=== PATIENT | female | born 1950 | race Caucasian/White ===

== ENCOUNTER → 2017-01-14 | Outpatient (CLI) | payer OTHER ==
[~2017-01-14] MED LIST: LORA-741 PO; METO25TA56 PO; MULT-506 PO; RIVA1TAB4 PO; TRAZ50TA35 PO; UMEC1AER INH
== END | disposition home or self-care (01) ==
LOC: C.PAPS 08:20
PROVIDERS: ATTEND Obstetrics & Gynecology
DX: Z12.4 Encounter for screening for malignant neoplasm of cervix (principal)

== ENCOUNTER → 2017-01-30 | Outpatient (CLI) | payer OTHER, MEDICARE ==
--- NOTE | 2017-01-31 07:42 | MAMMOGRAPHY REPORT ---
BILATERAL DIGITAL SCREENING MAMMOGRAM WITH CAD: 01/30/2017 CLINICAL HISTORY: Routine screening. Patient has no complaints. TECHNIQUE: Bilateral CC and MLO views were obtained. Current study was also evaluated with a Compute r Aided Detection (CAD) system. COMPARISON: Comparison is made to exams dated: 04/14/2014 mammogram, 03/18/2013 mammogram, 03/12/2012 m ammogram, 03/07/2011 mammogram, 03/01/2010 mammogram - [facility], and 02/28/2009. BREAST COMPOSITION: The tissue of both breasts is heterogeneously dense, which may obscure small mas ses. FINDINGS: An asymmetry in the superior posterior right breast near the fatglandular interface appear s similar to prior mammograms dating back to at least 02/17/2008, therefore likely benign. There are scattered benign rounded calcifications in the breasts. No obvious new suspicious mass, architectur al distortion or cluster of suspicious microcalcifications is seen. IMPRESSION: ACR BI-RADS CATEGORY 1: NEGATIVE There is no mammographic evidence of malignancy. A 1 year screening mammogram is recommended. The pa tient will receive written notification of the results. Approximately 10% of breast cancers are not detected with mammography. A negative mammographic report should not delay biopsy if a clinically suggestive mass is present. Mary Sumner M.D. ay/:01/30/2017 15:28:15 Touch Up Edger: Mary DALTON(Cordell)(Jatinder), [facility] letter sent: Normal 1/2 BI-RADS Code: ACR BI-RADS Category 1: Negative
== END | disposition home or self-care (01) ==
LOC: C.MAMM 13:38
PROVIDERS: ATTEND Internal Medicine
DX: Z12.31 Encounter for screening mammogram for malignant neoplasm of breast (principal)

== ENCOUNTER → 2017-02-27 | Day surgery (SDC) | payer OTHER, MEDICARE ==
[2017-02-21 10:37] VITALS: Ht 157.5 cm; Wt 59.1 kg
[~2017-02-27] VITALS: Ht 157.5 cm; Wt 59.1 kg
[~2017-02-27] MED LIST changes: +500ML BSS 0.3ML EPI 1:1000PF IRRIG ONE; +ACETAMINOPHEN 325 MG TAB PO PRN; +AMVISC PLUS 0.8ML SYRINGE INT OCU ONE; +ATROPINE SULFATE 0.1 MG/ML 5ML SYR IV PRN; +BRIMONIDINE TART 0.2% OP SOLN PER DROP CHARGE ONE; +BSS FLUSH ONE; +ENDOCOAT 0.85ML SYRINGE INT OCU ONE; +EpHEDrine SULFATE INJ 50 MG/ML AMP IV PRN; +EpINEphrine INJ 1MG/ML AMP 1 MG/ML AMP ONE; +FENTANYL CITRATE INJ 50 MCG/1 ML 2 ML VIAL ONE; +LACTATED RINGER'S 1000ML 500 ML IV SCH; +LIDOCAINE 4% OP SOLN DROP CHARGE OPR SCH; +LIDOCAINE HCL 1% MPF 2 ML VIAL ONE; +MIDAZOLAM HCL 1 MG/ML 2ML VIAL ONE; +MIX: 4ML BSS 1ML EPI 1:1000 PF INSTIL ONE; +MOXIFLOXACIN OPH SOLN PER DROP CHARGE ONE; +OCUCOAT 1 ML SOLN IO ONE; +POVIDONE-IODINE OP SOLN 30 ML BTL ONE; +PROPARACAINE 0.5% OP SOLN PER DROP CHARGE OPR SCH; +TOBRAMYCIN/DEXAMETHASONE OPH OINT PER APPLN CHARGE ONE
--- NOTE | 2017-02-27 06:52 | History & Physical Bridge - SC ---
H&P Re-Evaluation Bridge Note: I have examined the patient, reviewed the History & Physical and in the interval since the performance of the History & Physical I have noted the following changes of clinical significance: No changes noted
[2017-02-27] MEDS: PHENYLEPHRINE HCL 2.5% OP SOLN PER DROP CHARGE OPR SCH ×2 (07:12→07:17)
[2017-02-27] MEDS: TROPICAMIDE 1% OP SOLN PER DROP CHARGE OPR SCH ×2 (07:13→07:18)
[2017-02-27] MEDS: CYCLOPENTOLATE HCL 1% OP SOLN PER DROP CHARGE OPR SCH ×2 (07:14→07:19)
[2017-02-27] MEDS: MOXIFLOXACIN OPH SOLN PER DROP CHARGE OPR SCH ×2 (07:15→07:26)
[2017-02-27] MEDS: LIDOCAINE 4% OP SOLN DROP CHARGE ONE ×2 (07:27→08:09)
--- NOTE | 2017-02-27 08:13 | Discharge Instructions-SurgCtr ---
Discharge Instructions Date of Service Feb 27, 2017. Visit Reason for Visit: Cataract Right Discharge Discharge Diagnosis / Problem: Lens Implant Right Eye Discharge Goals Goal(s): Improve function Activity Recommendations Activity Limitations: resume your previous activity Lifting Limitations: no more than 10 pounds Exercise/Sports Limitations: gradually increase as tolerated May Resume Sexual Activity: when tolerated Shower/Bathe: tomorrow Driving or Machine Use: resume 1 day after discharge Anesthesia . Post Anesthesia Instructions: If you have had General Anesthesia or IV Sedation: * Do not drive today. * Resume driving when surgeon permits. * Do not make important decisions or sign legal documents today. * Call surgeon for: 1. Temperature elevations greater than 101 degrees F. 2. Uncontrollable pain. 3. Excessive bleeding. 4. Persistent nausea and vomiting. 5. Medication intolerance (nausea, vomiting or rash). * For nausea and vomiting use only clear liquids such as: tea, soda, bouillon until nausea subsides, then gradually increase diet as tolerated. * If you have any concerns or questions, call your surgeon's office. If physician is unavailable and it is an emergency, call 911 or go to the nearest emergency room. . Instructions / Follow-Up Instructions / Follow-Up ACTIVITY RECOMMENDATIONS: * Light activities. * Mild irritation and blurred vision are common for the first few days. * You may walk outside, read, watch television. * Redness around the white part of the eye is common. MEDICATIONS: Resume previous medications unless instructed otherwise by your surgeon. Start all eye drops at 1 pm today: * Eye drops (today and tomorrow): Prednisone - one drop in operative eye every 3 hours while awake Ofloxacin - one drop in operative eye every 3 hours while awake SPECIAL CARE INSTRUCTIONS: * Tape plastic shield over eye to sleep at night. Call your doctor at with any concerns or problems. FOLLOW UP VISIT: Follow-up with Dr Obando at [facility] as scheduled. Diet Recommendations Home Diet: no limitations Procedures Procedures Performed: Cataract Extraction with Lens Implant Pending Studies Studies pending at discharge: no Medical Emergencies . Who to Call and When: Medical Emergencies: If at any time you feel your situation is an emergency, please call 911 immediately. . Non-Emergent Contact Non-Emergency issues call your: Pharmacy Technician Infusion Call Non-Emergent contact if: your pain is not controlled [phone] . . "Provider Documentation" section prepared by Andrea Obando. .
--- NOTE | 2017-02-27 08:15 | [facility] Operative Report ---
Operative Report Date of Service Feb 27, 2017. Operative Report 1. PREOPERATIVE DIAGNOSIS: Senile nuclear cataract, right eye. 2. POSTOPERATIVE DIAGNOSIS: Senile nuclear cataract, right eye. 3. PROCEDURE: Phacoemulsification of right cataract with posterior chamber lens implant, type [employer], model MI60L, power +10.0 diopters. ANESTHESIA: Local standby. SURGEON: Dr. Obando. COMPLICATIONS: None. OPERATING TIME: 10 minutes. 4. OPERATION AND FINDINGS: DESCRIPTION OF PROCEDURE: The right pupil was dilated. The anesthetic was administered using a topical technique. The right eye was prepped and draped. A speculum was placed. A clear corneal incision was formed. The chamber was filled with Amvisc Plus and Endocoat. Epinephrine solution was used. A paracentesis was placed. A capsulorrhexis was performed. The nucleus was hydrodissected. The lens was removed with phacoemulsification. Time was 2.55 seconds. The aspiration unit was used to remove the cortex. The capsule was filled with Amvisc Plus. The lens implant was folded and placed into the capsule. The incision was hydrated. The Amvisc was aspirated. The wound was secure. The chamber was deep. The pupil was round. Brimonidine, TobraDex ointment and Vigamox solution were placed. The speculum was removed. The patient was returned to the Recovery Room in stable condition. I attest to the content of the Intraoperative Record and any orders documented therein. Any exceptions are noted below. The scribe's documentation has been prepared in my presence, under my direction and personally reviewed by me in its entirety. I confirm that the note above accurately reflects all work, treatment, procedures, and medical decision making performed by me. I personally scribed for Andrea Obando M.D. (ALEXIS) on 02/27/17 at 08:15. Electronically submitted by Carla Cabrera ([place]).
[2017-02-27 08:16] VITALS: TEMP 36.6
[2017-02-27 08:41] VITALS: BP 133/77; PULSE 62; O2SAT 94
--- NOTE | 2017-02-27 08:47 | Anesthesia Progress Nt - [facility] ---
Anesthesia Post Op Note Date & Time Feb 27, 2017 at 08:47 Vital Signs Pain Intensity: 0 Vital Signs Past 12 Hours Date Time Temp Pulse Resp B/P (MAP) Pulse Ox O2 Delivery O2 Flow Rate FiO2 02/27/17 08:41 62 20 133/77 (95) 94 02/27/17 08:16 36.6 58 20 113/67 (82) 96 Room Air 02/27/17 07:05 36.6 69 16 130/75 (93) 96 Room Air Notes Mental Status: alert / awake / arousable, participated in evaluation Pt Amnestic to Procedure: Yes Nausea / Vomiting: adequately controlled Pain: adequately controlled Airway Patency, RR, SpO2: stable & adequate BP & HR: stable & adequate Hydration State: stable & adequate Anesthetic Complications: no major complications apparent
== END | disposition home or self-care (01) ==
LOC: X.SURG 06:50
PROVIDERS: ATTEND Specialist
DX: H25.11 Age-related nuclear cataract, right eye (principal); J44.9 Chronic obstructive pulmonary disease, unspecified; Z91.040 Latex allergy status; Z88.2 Allergy status to sulfonamides; Z85.118 Personal history of other malignant neoplasm of bronchus and lung; Z86.718 Personal history of other venous thrombosis and embolism; Z68.23 Body mass index [BMI] 23.0-23.9, adult; Z98.42 Cataract extraction status, left eye; Z98.890 Other specified postprocedural states

== ENCOUNTER → 2017-04-02 | Outpatient (CLI) | payer OTHER, MEDICARE ==
[~2017-04-02] MED LIST changes: -500ML BSS 0.3ML EPI 1:1000PF IRRIG ONE; -ACETAMINOPHEN 325 MG TAB PO PRN; -AMVISC PLUS 0.8ML SYRINGE INT OCU ONE; -ATROPINE SULFATE 0.1 MG/ML 5ML SYR IV PRN; -BRIMONIDINE TART 0.2% OP SOLN PER DROP CHARGE ONE; -BSS FLUSH ONE; -ENDOCOAT 0.85ML SYRINGE INT OCU ONE; -EpHEDrine SULFATE INJ 50 MG/ML AMP IV PRN; -EpINEphrine INJ 1MG/ML AMP 1 MG/ML AMP ONE; -FENTANYL CITRATE INJ 50 MCG/1 ML 2 ML VIAL ONE; -LACTATED RINGER'S 1000ML 500 ML IV SCH; -LIDOCAINE 4% OP SOLN DROP CHARGE OPR SCH; -LIDOCAINE HCL 1% MPF 2 ML VIAL ONE; -MIDAZOLAM HCL 1 MG/ML 2ML VIAL ONE; -MIX: 4ML BSS 1ML EPI 1:1000 PF INSTIL ONE; -MOXIFLOXACIN OPH SOLN PER DROP CHARGE ONE; -OCUCOAT 1 ML SOLN IO ONE; -POVIDONE-IODINE OP SOLN 30 ML BTL ONE; -PROPARACAINE 0.5% OP SOLN PER DROP CHARGE OPR SCH; -TOBRAMYCIN/DEXAMETHASONE OPH OINT PER APPLN CHARGE ONE
--- NOTE | 2017-04-03 07:45 | MAMMOGRAPHY REPORT ---
UNILATERAL RIGHT DIGITAL DIAGNOSTIC MAMMOGRAM TOMOSYNTHESIS WITH CAD AND TARGETED RIGHT ULTRASOUND: CLINICAL HISTORY: 66-year-old woman presents for diagnostic evaluation. A prior chest CT performed i June 2016 described a 9 mm enhancing nodule in the 9:00 posterior right breast. Upon further q uestioning, the patient has a remote history of previous biopsy in the 10:00 right breast, performed in 1996, which yielded a fibroadenoma. Images from that biopsy are not available. TECHNIQUE: Right XCCL and MLO 2-D and tomosynthesis images were obtained. Current study was also ev aluated with a Computer Aided Detection (CAD) system. COMPARISON: Comparison is made to exams dated: 01/30/2017 mammogram, 04/14/2014 mammogram, 03/18/2013 ma mmogram, 03/12/2012 mammogram, 03/07/2011 mammogram, and 03/01/2010 mammogram - [facility]. BREAST COMPOSITION: The tissue of the right breast is heterogeneously dense, which may obscure small masses. FINDINGS: The parenchymal pattern of the right breast is similar to prior exams. There are scattere d benign coarse and round microcalcifications throughout the right breast. On the exaggerated latera l CC view and corresponding tomosynthesis images, there is a partially circumscribed 9.5 mm round mas s in the lateral posterior breast. When comparing to all available prior mammograms, this in retrosp ect has been present dating back to 02/17/2008 and does not appear significantly changed in size, giv en slight differences in technique. Nevertheless, further evaluation with ultrasound was performed. No other definite mass, focal area of architectural distortion or new suspicious calcifications are seen in the right breast. Targeted ultrasound was performed in the lateral right breast approximate 9:00 and 10:00 axes. In th e 10:00 breast, 4 cm from the nipple, there is an oval parallel circumscribed solid mass measuring ap proximately 9.2 x 11.1 x 4.7 mm. 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 The above mammograms and ultrasound and findings were discussed with the patient and her at t he time of the exam. Options of follow-up to ensure stability of this benign-appearing solid mass ve rsus tissue sampling were provided and the with like to biopsy the solid mass at this time. As the p atient with scheduling the appointment, I was able to find a previous pathology report from 1996 whic h reported the biopsied mass to be in the 10:00 axis, measuring 15 mm. Although this suggests this m ass has been previously biopsied, a biopsy marker clip is not present within and given that no prior imaging is present it remains indeterminate; ultrasound guided core biopsy is recommended. IMPRESSION: ACR BI-RADS CATEGORY 4: SUSPICIOUS, TARGETED ULTRASOUND ACR BI-RADS CATEGORY 4: SUSPICIO US 1. The 9 mm nodule seen in the 9:00 posterior right breast described on a prior chest CT corresponds to an indeterminate solid mass in the 10:00 right breast seen on ultrasound. Although mammographica lly this mass may have been present dating back to 2007, and was possibly previously biopsied, no bio psy marker clip is present within for definitive confirmation, and no prior imaging including biopsy imaging is available at this time given the biopsy occurred 20 years ago. Therefore, ultrasound guid ed core needle biopsy is recommended. These results and recommendations were discussed with the patient and her at the time of the exam. Approximately 10% of breast cancers are not detected with mammography. A negative mammographic report should not delay biopsy if a clinically suggestive mass is present. Mary Sumner M.D. ay/:04/02/2017 14:18:02 Water And Gas Helper: Evens DALTON(Cordell)(Jatinder), [facility] letter sent: Abnormal 4/5 BI-RADS Code: ACR BI-RADS Category 4: Suspicious Ultrasound BI-RADS: ACR BI-RADS Category 4: Suspici ous
== END | disposition home or self-care (01) ==
LOC: C.MAMM 09:34
PROVIDERS: ATTEND Internal Medicine
DX: N63 Unspecified lump in breast (principal)

== ENCOUNTER → 2017-04-10 | Outpatient (CLI) | payer OTHER, MEDICARE ==
--- NOTE | 2017-04-10 13:37 | Discharge Instructions ---
Discharge Instructions Procedure Procedure Date: Apr 10, 2017. Reason for visit: Right Mass. Discharge Discharge Date: Apr 10, 2017. Discharge Diagnosis: status post breast biopsy Instructions Activity Recommendations: Additional Limitations (see below) Return to School/Work: no limitations Recommended Home Diet: No Limitations Provider Instructions: ACTIVITY RECOMMENDATIONS: * No lifting, pushing, pulling or exercising the affected side for three days. RETURN TO SCHOOL/WORK: * You may return to work/school after the procedure, but do not perform any strenuous activities for 24 to 48 hours. MEDICATIONS: * Tylenol (two 325 mg) every four to six hours if needed for mild pain (if not allergic to Tylenol). DIET: * Resume previous diet. SPECIAL CARE INSTRUCTIONS: * Keep biopsy site dry for 24 hours. May shower after 24 hours, but do not soak (bathe) incision. * May remove Tegaderm (plastic patch) tomorrow AFTER showering. * Leave the steri-strips on for one week. Allow the steri-strips to fall off by themselves. If not off after one week, you may remove them. You may place a Bandaid crosswise over the strips, if desired. * Apply ice 10 minutes on and 10 minutes off as needed. * Wear a bra at bedtime to sleep more comfortably for 2-3 days. * Your referring physician should have the results after approximately 5 to 7 business days. * Call for unusual bleeding, fever, drainage, etc or if you have any questions call during normal business hours or after hours call Dr Rowe, . FOLLOW UP VISIT: Follow-up with Referring Physician as scheduled. Allergies Coded Allergies: Latex (Verified Allergy, Intermediate, hives, itching,, 02/27/17) Sulfa Antibiotics (Verified Allergy, Intermediate, HIVES, 02/27/17) Sanchez Mclean Recommendations: Call your doctor if: * Temperature above 101 degrees * Pain not relieved by pain medicine ordered * There is increased drainage or redness from any incision * You have any unanswered questions or concerns. Your Doctors Instructions noted above were prepared by provider Radha oRwe. Patient Signature Section: Patient Instructions Signature Page Edwinabuddy Zamarripa Patient (or Guardian) Signature/Date: I have read and understand the instructions given to me by my caregivers. Caregiver/RN/Doctor Signature/Date: The above-named patient and/or guardian has received patient instructions on this date. + Original Patient Signature Page (only) stays with chart. Please make copy for patient.
--- NOTE | 2017-04-10 15:18 | MAMMOGRAPHY REPORT ---
ULTRASOUND GUIDED BIOPSY RIGHT BREAST: 04/10/2017 CLINICAL HISTORY: Right 10:00 breast mass. PATIENT CONSENT: The procedure, risks and benefits were discussed with the patient and informed writt en consent was obtained. A timeout was performed immediately prior to the procedure. PROCEDURE DESCRIPTION: With ultrasound guidance, aseptic technique, and lidocaine as the local anesth etic (1% lidocaine to anesthetize the skin and 1% lidocaine with epinephrine to anesthetize the deepe r tissues), the mass of concern in the right 10:00 breast was sampled multiple times with a 14-gauge Achieve biopsy needle and 18-gauge Quick-Core biopsy needle. The mass was very far posterior so an o pen bevel technique was used, however, the larger biopsy needle would not easily travserse the mass t herefore the smaller Quick-Core needle was used. Immediately thereafter, a metallic localizer clip w as placed centrally in the mass. Direct pressure was applied to the site immediately post procedure and hemostasis was achieved. Postprocedure unilateral mammograms were performed to confirm placement of the clip in the expected location of the breast mass. The patient tolerated the procedure withou t complication. She was given wound care instructions. The specimens were sent to pathology for anal ysis. COMPARISON: Comparison is made to exams dated: 04/02/2017 mammogram, 04/02/2017 ultrasound, 04/14/2014 ma mmogram, 01/30/2017 mammogram, 03/18/2013 mammogram - [facility], and 02/28/2009. IMPRESSION: ULTRASOUND GUIDED BIOPSY Ultrasound-guided core needle biopsy of the right 10:00 breast mass, with clip placement. The patien t will receive pathology results from her referring provider. Radha Rowe M.D. ah/:04/10/2017 14:32:37 Office Automation Technician: Autumn DALTON(R)(M), [facility]
--- NOTE | 2017-04-10 15:20 | MAMMOGRAPHY REPORT ---
UNILATERAL RIGHT DIGITAL DIAGNOSTIC MAMMOGRAM TOMOSYNTHESIS: 04/10/2017 CLINICAL HISTORY: Status post right breast biopsy. A stressing. TECHNIQUE: Breast tomosynthesis in addition to standard 2D mammography was performed. Postprocedura l right CC and ML tomosynthesis images including C views were obtained. COMPARISON: Comparison is made to exams dated: 04/02/2017 ultrasound, 04/02/2017 mammogram, 01/30/2017 clarence mogram, 04/14/2014 mammogram, 03/18/2013 mammogram, and 03/12/2012 mammogram - [facility]. BREAST COMPOSITION: The tissue of the right breast is heterogeneously dense, which may obscure small masses. FINDINGS: A new biopsy marker clip is seen in the right upper outer quadrant at the site of the biop sied right 10:00 breast mass. This is located at the site of the mammographic mass which has been st able mammographically dating back to at least the 2007 and 2008 exam, suggesting benignity. No signi ficant postbiopsy hematoma is seen. IMPRESSION: POST PROCEDURE IMAGING FOR MARKER PLACEMENT New biopsy marker clip status post right breast biopsy. Pathology results are pending. Approximately 10% of breast cancers are not detected with mammography. A negative mammographic report should not delay biopsy if a clinically suggestive mass is present. Radha Rowe M.D. /:04/10/2017 14:34:59 Typist: Autumn DOMÍNGUEZ)(Jatinder), [facility] BI-RADS Code: Post Procedure Imaging For Marker Placement
== END | disposition home or self-care (01) ==
LOC: C.MAMM 12:48
PROVIDERS: ATTEND Internal Medicine
DX: R92.8 Other abnormal and inconclusive findings on diagnostic imaging of breast (principal); N63 Unspecified lump in breast

== ENCOUNTER → 2017-07-24 | Day surgery (SDC) | payer OTHER, MEDICARE ==
[2017-07-16 09:00] VITALS: Ht 157.5 cm; Wt 63.6 kg
[~2017-07-24] VITALS: Ht 157.5 cm; Wt 63.6 kg
[~2017-07-24] MED LIST changes: +LIDOCAINE HCL 2% 2 ML VIAL (20MG/ML) ONE; +PROPOFOL IV EMULSION 10 MG/ML 20 ML VIAL IV ONE
--- NOTE | 2017-07-24 09:32 | Endo History and Physical ---
History & Physical Date of Service: Jul 24, 2017. Chief Complaint: screening CRC Referring Physician: Dr Osborne History of Present Illness CRC screening Past Surgical History Hx Cardiac Surgery: No Hx Internal Defibrillator: No Hx Pacemaker: No Hx Abdominal Surgery: No Hx of Implantable Prosthesis: No Hx Post-Op Nausea and Vomiting: Yes Hx Cancer Surgery: No Hx Thoracic Surgery: Yes (BRONCHOSCOPY WITH BIOPSY) Hx Orthopedic: No Hx Urinary Tract Surgery: No Family History None Social History Smoking Status: Former Smoker Hx Substance Use: No Hx Alcohol Use: No Allergies Coded Allergies: Latex (Verified Allergy, Intermediate, HIVES, ITCHING, 07/16/17) Sulfa Antibiotics (Verified Allergy, Intermediate, HIVES, 07/16/17) Current Medications Reported Home Medications Medications Dose Route/Sig Max Daily Dose Days Date Category Anoro Ellipta 62.5-25 Mcg/INH (Umeclidinium-Vilanterol) 1 Aer Aer 1 Puff INH QAM 02/21/17 Reported Multivitamin (Multivitamins) Tab 1 Tab PO DAILY 02/21/17 Reported Ativan (Lorazepam) 0.5 Mg Tab 0.5 Mg PO HS PRN 02/21/17 Reported Trazodone (Trazodone HCl) 50 Mg Tab 50 Mg PO HS 02/21/17 Reported Xarelto (Rivaroxaban) 20 Mg Tab 20 Mg PO QAM 02/21/17 Reported Lopressor (Metoprolol Tartrate) 25 Mg Tab 25 Mg PO BID 02/21/17 Reported Vital Signs Weight (Kilograms): 63.64 Height (Feet): 5 Height (Inches): 2 Date Time Temp Pulse Resp B/P (MAP) Pulse Ox O2 Delivery O2 Flow Rate FiO2 07/24/17 08:47 36.6 68 22 122/66 (84) 98 Room Air Physical Exam General Appearance: no apparent distress Respiratory/Chest: Auscultation: breath sounds normal Cardiovascular: Heart Auscultation: RRR Abdomen: Inspection & Palpation: soft Assessment and Plan CRC screening
--- NOTE | 2017-07-24 10:11 | GI REPORT ---
Procedure Date: 07/24/2017 9:42 AM Procedure: Colonoscopy Indications: Screening for colorectal malignant neoplasm Medicines: See the Anesthesia note for documentation of the administered medications Complications: No immediate complications. Estimated Blood Loss: Estimated blood loss: none. Procedure: Pre-Anesthesia Assessment: - ASA Grade Assessment: II - A patient with mild systemic disease. After I obtained informed consent, the scope was passed under direct vision. Throughout the procedure, the patient's blood pressure, pulse, and oxygen saturations were monitored continuously. The scope was introduced through the anus and advanced to the terminal ileum. The colonoscopy was performed without difficulty. The patient tolerated the procedure well. The quality of the bowel preparation was good. Findings: The perianal and digital rectal examinations were normal. Multiple small and large-mouthed diverticula were found in the sigmoid colon. Multiple AVM's in ascending colon. Otherwise normal exam. Impression: - Diverticulosis in the sigmoid colon. - AVM's in ascending colon. Recommendation: - Discharge patient to home. Repeat exam in 10 years. Kaz Jacobo M.D. Kaz Jacobo MD 07/24/2017 10:11:02 AM This report has been signed electronically. Note Initiated On: 07/24/2017 9:42 AM I attest to the content of the Intraoperative Record and orders documented therein, exceptions below
--- NOTE | 2017-07-24 10:12 | Discharge Instructions ---
Endoscopy Patient Instructions Date / Procedure(s) Performed Jul 24, 2017. Colonoscopy Allergy Information Coded Allergies: Latex (Verified Allergy, Intermediate, HIVES, ITCHING, 07/16/17) Sulfa Antibiotics (Verified Allergy, Intermediate, HIVES, 07/16/17) Discharge Date / Findings Jul 24, 2017. Diverticulosis, AVM's. Medication Instructions Stopped Medication(s): Xarelto Provider Instructions Activity Restrictions - No exercising or heavy lifting for 24 hours. - Do not drink alcohol the day of the procedure. - Do not drive a car or operate machinery until the day after the procedure. - Do not make any important decisions or sign important papers in 24 hours after the procedure. Following Day: - Return to full activity which may include returning to work/school. Diet Start your diet with liquids and light foods (jello, soup, juice, toast). Then eat your usual diet if not nauseated. Treatment For Common After Affects For mild abdominal pain, bloating, or excessive gas: - Rest - Eat lightly - Lie on right side Follow-Up Information Follow-up with Dr Osborne as scheduled Anesthesia Information What You Should Know You have had a procedure that required some medicine to reduce anxiety and discomfort. This treatment is called moderate sedation. After receiving the treatment, you may be sleepy, but you will be able to breathe on your own. The effects of the treatment may last for several hours. Follow these instructions along with Activity/Diet recommendations noted above: * Do NOT do anything where dizziness or clumsiness would be dangerous. * Rest quietly at home today, then you can be up and about tomorrow. * Have a responsible person stay with you the rest of today. * You may have had an I.V. today. If so, you may take the dressing off later today. Recommendations Call your doctor if: * Trouble breathing * Continuous vomiting for more than 24 hours * Temperature above 101 degrees * Severe abdominal pain or bloating * Pain not relieved by pain medicine ordered * There is increased drainage or redness from any incision * A large amount of rectal bleeding greater than 2-3 tablespoons. (If you had a polyp/s removed or have hemorrhoids, a small amount of blood - from the rectum is to be expected.) * You have any unanswered questions or concerns. IN THE EVENT OF A SERIOUS EMERGENCY, GO TO THE NEAREST EMERGENCY ROOM Your discharge instructions were prepared by provider Kaz Russell. Patient Instructions Signature Page Edwina Zamarripa Patient (or Guardian) Signature/Date: I have read and understand the instructions given to me by my caregivers. Caregiver/RN/Doctor Signature/Date: The above-named patient and/or guardian has received patient instructions on this date. + Original Patient Signature Page (only) stays with chart. Please make copy for patient.
[2017-07-24 10:40] VITALS: BP 107/58; PULSE 67; O2SAT 97
--- NOTE | 2017-07-24 10:48 | Anesthesiology Progress Note ---
Anesthesia Post Op Note Date & Time Jul 24, 2017 at 10:47 Vital Signs Pain Intensity: 0 Vital Signs Past 12 Hours Date Time Temp Pulse Resp B/P (MAP) Pulse Ox O2 Delivery O2 Flow Rate FiO2 07/24/17 10:40 67 20 107/58 (74) 97 Room Air 07/24/17 10:25 71 20 95/55 (68) 98 Room Air 07/24/17 10:10 64 20 128/57 (80) 98 Room Air 07/24/17 08:47 36.6 68 22 122/66 (84) 98 Room Air Notes Mental Status: alert / awake / arousable, participated in evaluation Pt Amnestic to Procedure: Yes Nausea / Vomiting: adequately controlled Pain: adequately controlled Airway Patency, RR, SpO2: stable & adequate BP & HR: stable & adequate Hydration State: stable & adequate Anesthetic Complications: no major complications apparent
== END | disposition home or self-care (01) ==
LOC: C.GI 08:23
PROVIDERS: ATTEND Internal Medicine Gastroenterology
DX: Z12.11 Encounter for screening for malignant neoplasm of colon (principal); K57.30 Diverticulosis of large intestine without perforation or abscess without bleeding; K55.20 Angiodysplasia of colon without hemorrhage; Z85.118 Personal history of other malignant neoplasm of bronchus and lung; Z86.718 Personal history of other venous thrombosis and embolism; J44.9 Chronic obstructive pulmonary disease, unspecified; Z91.040 Latex allergy status; Z88.2 Allergy status to sulfonamides; Z79.899 Other long term (current) drug therapy; Z98.41 Cataract extraction status, right eye; Z98.42 Cataract extraction status, left eye; Z98.890 Other specified postprocedural states

== ENCOUNTER → 2017-08-09 | Outpatient (CLI) | payer OTHER, MEDICARE ==
[~2017-08-09] MED LIST changes: -LIDOCAINE HCL 2% 2 ML VIAL (20MG/ML) ONE; -PROPOFOL IV EMULSION 10 MG/ML 20 ML VIAL IV ONE
--- NOTE | 2017-08-09 12:17 | DIAGNOSTIC IMAGING REPORT ---
LUNG QUANTITATIVE CLINICAL HISTORY: R91.8 Pulmonary massC34.90 Bronchogenic xwhmpzE57.02 Shortness o TECHNIQUE: Quantitative lung scan following administration of 5.5 mCi technetium 99m MAA. COMPARISON STUDY: 07/09/2017 FINDINGS: Considerable differential of perfusion is noted in the right compared to left lung. Left lung is diminished in terms of volume of the right somewhat hyperexpanded. Overall, left contributes 24% of total perfusion with the right lung contributing 76%. IMPRESSION: 1. Considerable asymmetry of pulmonary perfusion 2. Right lung contributes 76% total perfusion. 3. Left contributes 24% of total perfusion. The above report was generated using voice recognition software. It may contain grammatical, syntax or spelling errors. Electronically signed by: Jacinto Hernandez M.D. 08/09/2017 12:16 PM Dictated Date/Time: 08/09/2017 12:11 PM
== END | disposition home or self-care (01) ==
LOC: C.NUCL 10:49
PROVIDERS: ATTEND Internal Medicine Pulmonary Disease
DX: R06.02 Shortness of breath (principal); R91.8 Other nonspecific abnormal finding of lung field; C34.90 Malignant neoplasm of unspecified part of unspecified bronchus or lung

== ENCOUNTER → 2017-08-12 | Outpatient (CLI) | payer OTHER, MEDICARE ==
[~2017-08-12] MED LIST changes: +BACL10TA PO; +CALC600T9 PO; +PRED20TA2 PO
[2017-08-15 11:11] VITALS: PULSE 80; O2SAT 92
--- NOTE | 2017-08-29 12:57 | CODING QUERY MEDICAL NECESSITY ---
SUPPORTING DIAGNOSIS NEEDED A supporting diagnosis is required for the test/procedure performed on this patient in order for us to be reimbursed by the patient's insurance. Please provide a supporting diagnosis for the following test/procedure listed below next to the test name along with your signature. *If there is no additional diagnosis for this patient that would support the following test/procedure please document that below next to the test/procedure. Test(s)/Procedure(s) that require a supporting diagnosis: * PULSE OX OVERNIGHT STUDY DIAGNOSIS: Provider Signature: Date: Thank you Khushbu Levine [employer] Once completed, please kindly fax back to [phone] For questions please call [phone]
== END | disposition home or self-care (01) ==
LOC: C.RC 16:43
PROVIDERS: ATTEND Internal Medicine Pulmonary Disease
DX: R06.02 Shortness of breath (principal); R91.8 Other nonspecific abnormal finding of lung field

== ENCOUNTER → 2017-08-13 | Outpatient (CLI) | payer OTHER, MEDICARE ==
[~2017-08-13] MED LIST changes: -BACL10TA PO; -CALC600T9 PO; +GADAVIST IV PRN; -PRED20TA2 PO
--- NOTE | 2017-08-13 22:31 | DIAGNOSTIC IMAGING REPORT ---
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 The midline structures including the corpus callosum, brainstem, optic chiasm, pituitary gland and infundibulum, pineal gland and cerebellar tonsils are unremarkable in the sagittal T1 series. Mild degenerative changes of the imaged cervical spine. Coronal T2 FLAIR images are at severely motion degraded. Mild scattered foci of increased T2/FLAIR signal redemonstrated within the subcortical and periventricular white matter suggesting chronic microvascular ischemic changes. No acute intracranial hemorrhage, midline shift or abnormal extra-axial collections. There is no abnormal intra-axial or extra-axial enhancement identified to suggest metastasis. The major flow voids at the level of the skull base appear patent. Thinning of the bilateral lenses suggest prior cataract repair. The scalp, calvarium and soft tissues are unremarkable. Mild ethmoid sinus disease. Mastoid air cells are clear. Probable slow flow within the left sigmoid sinus. IMPRESSION: 1. No acute intracranial abnormality. No abnormal enhancement or acute infarction. 2. Mild chronic microvascular ischemic changes. The above report was generated using voice recognition software. It may contain grammatical, syntax or spelling errors. Electronically signed by: Shin Mcdermott M.D. 08/13/2017 10:29 PM Dictated Date/Time: 08/13/2017 10:19 PM
== END | disposition home or self-care (01) ==
LOC: C.MRI 20:20
PROVIDERS: ATTEND Internal Medicine Pulmonary Disease
DX: C34.90 Malignant neoplasm of unspecified part of unspecified bronchus or lung (principal); R51 Headache

== ENCOUNTER → 2017-09-02 | Outpatient (CLI) | payer OTHER, MEDICARE ==
--- NOTE | 2017-09-02 09:45 | DIAGNOSTIC IMAGING REPORT ---
MRA CHEST SUBCLAVIAN ANGIO COMBO CLINICAL HISTORY: AORTIC ARCH SYNDROME, giant cell arteritis COMPARISON STUDY: No previous studies for comparison. FINDINGS: Noncontrast images were supplemented with angiographic sequence in which the patient received 6.5 mL of intravenous Gadavist Steam Hand images reveal multilevel degenerative changes in the cervical spine with suspected mild multilevel spinal stenosis Post gadolinium sagittal images reveal a 4.4 cm left apical mass. In addition there appears to be atelectasis/consolidation of the left upper lobe. A chest CT is recommended for further evaluation. There is elevation left hemidiaphragm There is a 10% stenosis of the left subclavian artery, just distal to the left vertebral origin. There is a 60% stenosis involving the arch and of the right innominate artery. IMPRESSION: 1. 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 10% stenosis of the left subclavian artery 3. 4.4 cm left apical pulmonary mass with possible chest wall extension. Left upper lobe atelectasis/consolidation. A chest CT is recommended for further evaluation. 4. Multilevel degenerative changes within the cervical spine Electronically signed by: Miguel Frank M.D. 09/02/2017 9:43 AM Dictated Date/Time: 09/02/2017 9:32 AM
--- NOTE | 2017-09-02 10:06 | DIAGNOSTIC IMAGING REPORT ---
CERVICAL SPINE MRI HISTORY: LT SIDE NECK PAIN TECHNIQUE: Multiplanar multisequence MRI of the cervical spine was performed without the use of contrast. COMPARISON STUDY: Outside hospital chest CT 07/09/2017. FINDINGS: There is persistent left upper lobe collapse which is partially visualized on this study. Straightening of the cervical spine. Alignment is intact. No fractures identified. The visualized posterior fossa is unremarkable. Prevertebral soft tissues and the C1-C2 interval are intact. Mild facet degenerative changes seen throughout the cervical spine. Cervical spinal cord demonstrates a normal signal intensity. Mild disc space narrowing at C4-C5. Moderate disc space narrowing at C5-C6 and C6-C7 with endplate osteophytes. C2-C3: No central canal or right-sided neural foraminal narrowing. Moderate left-sided neural foraminal narrowing due to the uncovertebral and facet hypertrophy. C3-C4: No central canal or right-sided neural foraminal narrowing. Severe left-sided neural foraminal narrowing due to the facet and vertebral hypertrophy. C4-C5: Tiny broad-based posterior disc bulge resulting in partial effacement of the anterior thecal sac without cord deformity. Mild to moderate right-sided neural foraminal narrowing. C5-C6: Broad-based posterior disc osteophyte complex with a small right paracentral focal disc protrusion. This abuts and slightly deforms the right anterior cord. Mild to moderate bilateral neural foraminal narrowing. C6-C7: Broad-based posterior disc osteophyte complex with a small focal central disc protrusion. This abuts but does not significantly deform the anterior cord. There is moderate bilateral neural foraminal narrowing. C7-T1: Small left paracentral focal disc protrusion without significant central canal or neural foraminal narrowing. IMPRESSION: 1. Partial visualization of the left upper lobe collapse which is better appreciated on the outside hospital chest CT from 07/09/2017. An underlying pulmonary mass cannot be excluded. 2. Multilevel cervical spondylosis as described above most pronounced at the C5-C6, C6-7, C7-T1 levels. There is also left greater than right multilevel neural foraminal narrowing. 3. Straightening of the cervical spine. 4. No fracture or subluxation. Electronically signed by: Johny Coyne M.D. 09/02/2017 10:04 AM Dictated Date/Time: 09/02/2017 9:56 AM
== END | disposition home or self-care (01) ==
LOC: C.MRI 08:06
PROVIDERS: ATTEND Internal Medicine
DX: M47.893 Other spondylosis, cervicothoracic region (principal); M48.02 Spinal stenosis, cervical region; I77.1 Stricture of artery; I65.21 Occlusion and stenosis of right carotid artery; R91.8 Other nonspecific abnormal finding of lung field; M50.30 Other cervical disc degeneration, unspecified cervical region; M31.4 Aortic arch syndrome [Takayasu]; M31.6 Other giant cell arteritis